=== PATIENT | male | born 1970 | race Caucasian/White ===

== ENCOUNTER 2016-12-25 00:07 | Emergency (ER) | payer SELFPAY ==
--- NOTE | ~2016-12-25 | ER ---
PATIENT'S NAME: MILES NOBLE [facility] AGE: 46 Y [address] ROOM: [place] [id number] LOCATION: [facility] ADMIT DATE: 12/25/2016 ER/Outpatient Report DISCHARGE DATE: 12/25/2016 FAMILY PHYSICIAN: PHYSICIAN, NO ATTENDING PHYSICIAN: Johnathon Bolanos Time of Arrival: 0007 hours. Time of Evaluation: 0020 hours. CHIEF COMPLAINT: Medical clearance. HISTORY OF PRESENT ILLNESS: The patient is a 46-year-old male, who presents to the emergency department today with a chief complaint of medical clearance. The patient is under [facility] custody by [facility]. Apparently 3 hours prior to arrival[place]. There was concern that the patient was attempting to harm himself per [facility]. The patient reports that the headlights were too loud for him. He reports he had just ran out of gas. He denies any suicidal thoughts or ideation. Denies any auditory or visual hallucinations. Denies any homicidal ideation. Denies any pain at this time. PAST MEDICAL HISTORY: Insomnia and depression. PAST SURGICAL HISTORY: None. SOCIAL HISTORY: The patient occasionally smokes. Denies any alcohol or illicit drug use. ALLERGIES: NO KNOWN DRUG ALLERGIES. MEDICATIONS: None. PRIMARY CARE DOCTOR: None. REVIEW OF SYSTEMS: All systems are reviewed by myself and are negative with the exception of those discussed in the HPI and past medical history. PATIENT'S NAME: MILES NOBLE [facility] AGE: 46 Y [address] ROOM: [place] [address] LOCATION: [facility] ADMIT DATE: 12/25/2016 ER/Outpatient Report DISCHARGE DATE: 12/25/2016 FAMILY PHYSICIAN: PHYSICIAN, NO ATTENDING PHYSICIAN: Johnathon Bolanos PHYSICAL EXAMINATION: VITAL SIGNS: Weight 73.1 kg, blood pressure 127/84, pulse 81, respiratory rate 16, temperature 98.2, oxygen saturation 97% on room air. GENERAL: The patient is a 46-year-old male, who appears stated age, in no acute distress at this time. HEENT: Head: Normocephalic, atraumatic. Pupils are equal, round, and reactive to light. NECK: Supple. There is no nuchal rigidity. CARDIOVASCULAR: Regular rate and rhythm. No murmurs, rubs, or gallops. LUNGS: Clear to auscultation bilaterally. No wheezes, rales, or rhonchi. ABDOMEN: Soft, nontender, nondistended. No rebound, rigidity, or guarding. MUSCULOSKELETAL: The patient moves all 4 extremities. SKIN: Warm and dry. There are no rashes or lesions noted. LABORATORY DATA AND X-RAYS: CBC is normal. CMP is normal. LFT is normal. Alcohol is less than 0.01. Acetaminophen is less than 2. Salicylate less than 2.8. TSH is normal. Urinalysis is unremarkable. Urine drug screen is positive for amphetamines and cocaine. IMPRESSION: 1. Medical clearance. 2. Polysubstance abuse. 3. Initial visit. EMERGENCY DEPARTMENT COURSE: The patient was brought back to the examination room. Seen and evaluated by myself. Laboratory analyses are obtained as described above. I have discussed results with the patient. He is medically cleared for psychiatric evaluation. He is under [facility] custody. DISPOSITION: The patient is discharged into [facility] custody in good condition. DO CHRISTY CARLOS/maggy /[id number] d: 12/25/16 0300 t: 12/31/16 1623, OUTPATIENT REPORT
[2016-12-25 00:33] LABS: BASOPHIL % 0.6 %; EOSINOPHIL # 0.6 K/uL (0.0-0.5); EOSINOPHIL % 8.3 %; HEMATOCRIT 40.1 % (37.0-53.0); HEMOGLOBIN 13.1 g/dL (12.0-17.0); IMMATURE GRANULOCYTE % 0.3 %; LYMPHOCYTE # 2.6 K/uL (0.8-4.0); LYMPHOCYTE % 36.6 %; MCH 25.9 pg (27.0-34.0); MCHC 32.7 gm/dL (32.0-36.5); MCV 79.2 fl (83.0-98.0); MONOCYTE # 0.5 K/uL (0.0-1.0); MONOCYTE % 6.8 %; MPV 9.8 fl (9.4-12.4); NEUTROPHIL # (ANC) 3.4 K/uL (1.4-9.0); NEUTROPHIL % 47.4 %; NRBC % 0 /100WBC (0-0.00); PLATELET COUNT 249 K/uL (150-450); RBC 5.06 M/uL (4.00-6.00); RDW-CV 13.1 % (11.9-14.6); WBC 7.1 K/uL (4.0-11.0)
[2016-12-25 00:49] LABS: BILIRUBIN URINE NEGATIVE (NEGATIVE); BLOOD URINE NEGATIVE /UL (NEGATIVE); COLOR URINE YELLOW (YELLOW); GLUCOSE URINE NEGATIVE (NEGATIVE); KETONE URINE 5 mg/dL (NEGATIVE); LEUKOCYTES URINE 25 /UL (NEGATIVE); NITRITE URINE NEGATIVE (NEGATIVE); PROTEIN URINE 15 mg/dL (NEGATIVE); SPEC GRAVITY URINE 1.025 (1.003-1.035); TURBIDITY URINE CLEAR (CLEAR); UROBILINOGEN URINE 1 mg/dL (NORMAL)
[2016-12-25 00:59] LABS: ALBUMIN 3.5 gm/dL (3.5-5.0); ALK PHOS 83 IU/L (33-138); ALT 27 IU/L (12-78); ANION GAP 10.8 (10.0-19.0); AST 13 IU/L (10-40); BLOOD UREA NITROGEN 20 mg/dL (6-24); CALCIUM 8.7 mg/dL (8.5-10.5); CHLORIDE 105 mMol/L (96-110); CO2 26 mMol/L (22-32); CREATININE 1.2 mg/dL (0.6-1.3); POTASSIUM 3.8 mMol/L (3.7-5.1); SODIUM 138 mMol/L (135-145); TOTAL BILIRUBIN 0.5 mg/dL (0.0-1.5); TOTAL PROTEIN 7.5 g/dL (6.0-8.4)
[2016-12-25 01:01] LABS: OPIATES NEGATIVE (NEGATIVE)
[2016-12-25 01:03] LABS: AMPHETAMINE POSITIVE (NEGATIVE); BARBITURATE NEGATIVE (NEGATIVE); COCAINE POSITIVE (NEGATIVE)
[2016-12-25 01:14] LABS: BACTERIA URINE NEGATIVE (NEGATIVE); EPITHELIAL URINE RARE #/HPF (NEGATIVE); MUCUS URINE 1+ (NEGATIVE); RBC URINE NEGATIVE #/HPF (NEGATIVE); WBC URINE 0-2 #/HPF (NEGATIVE)
[2016-12-29] MEDS ORDERED: RISPERDAL1 MG PO (09:13)
[2016-12-29] MEDS ORDERED: NICORETTE 2 MG2 MG PO (09:14)
== END 2016-12-25 01:38 | disposition disaster alternative care site (69) ==
LOC: GMED 00:07
PROVIDERS: Emergency Medicine
DX: F14.10 Cocaine abuse, uncomplicated (principal); F15.10 Other stimulant abuse, uncomplicated; F32.9 Major depressive disorder, single episode, unspecified; G47.00 Insomnia, unspecified; F17.200 Nicotine dependence, unspecified, uncomplicated
CPT/HCPCS: G0480